=== PATIENT | male | born 1960 | race Caucasian/White ===

== ENCOUNTER 2017-11-06 07:15 | Inpatient (IN) | payer OTHER ==
[~2017-11-06 07:15] MED LIST: SOD CHLORIDE 0.45% 1,000 ML IV
[2017-11-06 08:27] LABS: ADD MAN DIFF? NO
[2017-11-06 08:30] LABS: BASOPHIL # 0.1 10^3/ul (0.0-0.1); BASOPHILS % 0.8 % (0.0-2.0); EOSINOPHILS # 0.3 10^3/ul (0.0-0.5); HEMATOCRIT 45.8 % (42.0-52.0); HEMOGLOBIN 15.2 g/dl (14.0-18.0); LYMPHOCYTES # 2.4 10^3/ul (0.8-2.9); LYMPHOCYTES % 28.1 % (15.0-51.0); MEAN CORPUSCULAR HEMOGLOBIN 27.5 pg (29.0-33.0); MEAN CORPUSCULAR HGB CONC 33.2 g/dl (32.0-37.0); MEAN CORPUSCULAR VOLUME 82.8 fl (82.0-101.0); MEAN PLATELET VOLUME 11.8 fl (7.4-10.4); MONOCYTE # 0.7 10^3/ul (0.3-0.9); MONOCYTES % 8.1 % (0.0-11.0); NEUTROPHILS % 59.4 % (39.0-77.0); PLATELET COUNT 254 10^3/UL (140-415); RED BLOOD COUNT 5.53 10^6/ul (4.70-6.10); RED CELL DISTRIBUTION WIDTH 13.6 % (11.5-14.5)
[2017-11-06 08:30] LABS: WHITE BLOOD COUNT 8.4 10^3/ul (4.8-10.8)
[2017-11-06] MEDS ORDERED: HEPARIN 1000 UNITS/ML 10 ML INJ (08:40)
[2017-11-06] MEDS ORDERED: FENTAnyl 50 MCG/ML VIAL (08:40)
[2017-11-06] MEDS ORDERED: LIDOCAINE 1% (MDV) 20 ML INJ (08:40)
[2017-11-06] MEDS ORDERED: VERAPAMIL 5 MG INJ (08:41)
[2017-11-06] MEDS ORDERED: MIDAZOLAM 1 MG/ML 2 ML INJ (08:41)
[2017-11-06] MEDS ORDERED: NITROGLYCERIN (IC) 100 MCG/ML INJ (08:41)
[2017-11-06 08:49] LABS: ANION GAP 13 (8-16); CARBON DIOXIDE 24 mmol/L (21-31); CHLORIDE 106 mmol/L (97-110); CHOL/HDL RATIO 8.4 RATIO; GLUCOSE 183 mg/dl (70-220); HDL CHOLESTEROL 30 mg/dl (28-71)
[2017-11-06 08:57] LABS: BLOOD UREA NITROGEN 17 mg/dl (7-20); CALCIUM 10.1 mg/dl (8.4-10.2); CREATININE 0.93 mg/dl (0.61-1.24); LDL CHOLESTEROL,CALCULATED 65 mg/dl; POTASSIUM 4.2 mmol/L (3.5-5.1); SODIUM 139 mmol/L (135-144); TRIGLYCERIDES 790 mg/dl (0-149)
[2017-11-06 09:00] LABS: CHOLESTEROL 253 mg/dl (100-200); INR 1.02; PROTIME 13.5 Sec (11.9-14.9); PT RATIO 1.1
[2017-11-06 09:01] LABS: PARTIAL THROMBOPLASTIN TIME 25.3 Sec (25.0-35.0)
[2017-11-06] MEDS ORDERED: IODIXANOL LOCM 100 ML BTL (10:59)
[2017-11-06] MEDS ORDERED: ASPIRIN 325 MG TAB (11:00)
[2017-11-06] MEDS ORDERED: TICAGRELOR 90 MG TABLET (11:00)
[2017-11-06] MEDS ORDERED: ZOLPIDEM 5 MG TAB PO (11:30)
[2017-11-06] MEDS ORDERED: ONDANSETRON 4 MG INJ IV (11:30)
[2017-11-06] MEDS ORDERED: ACETAMINOPHEN 325 MG TAB PO (11:30)
[2017-11-06] MEDS ORDERED: AL HYDROX/MG HYDROX/SIMETH 30 ML CUP PO (11:30)
[2017-11-06] MEDS: SOD CHLORIDE 0.9% 1,000 ML IV ×3 (12:06→21:07)
[2017-11-06] MEDS: OXYCODONE/ACETAMINOPHEN (5/325) TAB PO (12:42)
[2017-11-06] MEDS ORDERED: GLUCOSE GEL 15 GRAM TUBE BUCCAL (17:00)
[2017-11-06] MEDS ORDERED: GLUCAGON 1 MG INJ IM (17:00)
[2017-11-06] MEDS ORDERED: GLUCOSE GEL 15 GRAM TUBE PO ×2 (17:00)
[2017-11-06] MEDS ORDERED: DEXTROSE 50% 50 ML SYRINGE IV ×2 (17:00)
[2017-11-06] MEDS: INSULIN ASPART [NOVOLOG] 3 ML PEN SC ×2 (18:26→21:04)
[2017-11-06] MEDS: INSULIN GLARGINE [LANtus] 3 ML PEN SC (20:13)
[2017-11-06] MEDS: DIPHENHYDRAMINE 50 MG CAP PO (20:16)
[2017-11-06] MEDS: FAMOTIDINE 20 MG TAB PO (20:17)
[2017-11-06] MEDS: DIAZEPAM 5 MG TAB PO (20:17)
[2017-11-06] MEDS ORDERED: NON-FORMULARY/PATIENT OWN MED (Icosapent Ethyl (Vascepa) 1 GM) PO (21:00)
[2017-11-06] MEDS: TICAGRELOR 90 MG TABLET PO (21:03)
[2017-11-07] MEDS: ACCU-CHEK XX (02:00)
[2017-11-07 05:48] LABS: ADD MAN DIFF? NO
[2017-11-07 05:59] LABS: WHITE BLOOD COUNT 10.4 10^3/ul (4.8-10.8)
[2017-11-07 05:59] LABS: BASOPHIL # 0.1 10^3/ul (0.0-0.1); BASOPHILS % 0.5 % (0.0-2.0); EOSINOPHILS # 0.2 10^3/ul (0.0-0.5); EOSINOPHILS % 1.4 % (0.0-7.0); HEMATOCRIT 43.6 % (42.0-52.0); HEMOGLOBIN 14.7 g/dl (14.0-18.0); LYMPHOCYTES # 1.7 10^3/ul (0.8-2.9); LYMPHOCYTES % 16.3 % (15.0-51.0); MEAN CORPUSCULAR HEMOGLOBIN 27.9 pg (29.0-33.0); MEAN CORPUSCULAR HGB CONC 33.7 g/dl (32.0-37.0); MEAN CORPUSCULAR VOLUME 82.9 fl (82.0-101.0); MEAN PLATELET VOLUME 11.8 fl (7.4-10.4); NEUTROPHIL # 7.4 10^3/ul (1.6-7.5); NEUTROPHILS % 71.4 % (39.0-77.0); PLATELET COUNT 217 10^3/UL (140-415); RED BLOOD COUNT 5.26 10^6/ul (4.70-6.10); RED CELL DISTRIBUTION WIDTH 13.4 % (11.5-14.5)
[2017-11-07 06:29] LABS: ANION GAP 14 (8-16); BLOOD UREA NITROGEN 15 mg/dl (7-20); CALCIUM 9.5 mg/dl (8.4-10.2); CARBON DIOXIDE 24 mmol/L (21-31); CHLORIDE 106 mmol/L (97-110); CHOLESTEROL 226 mg/dl (100-200); CREATINE KINASE 294 IU/L (23-200); CREATININE 0.89 mg/dl (0.61-1.24); GLUCOSE 96 mg/dl (70-220); HDL CHOLESTEROL 28 mg/dl (28-71); POTASSIUM 4.1 mmol/L (3.5-5.1); SODIUM 140 mmol/L (135-144)
[2017-11-07 06:30] LABS: CK INDEX 0.7
[2017-11-07 06:40] LABS: CK-MB 2.06 ng/ml (0.0-2.4); LDL CHOLESTEROL,CALCULATED 66 mg/dl; TRIGLYCERIDES 658 mg/dl (0-149)
[2017-11-07 06:49] LABS: TROPONIN-I 0.237 ng/ml (0.000-0.120)
[2017-11-07] MEDS: INSULIN ASPART [NOVOLOG] 3 ML PEN SC ×2 (08:36→11:30)
[2017-11-07] MEDS: METOPROLOL (XL) 25 MG TAB PO (08:55)
[2017-11-07] MEDS: FENOFIBRATE 145 MG TAB PO (08:55)
[2017-11-07] MEDS: HYDROCHLOROTHIAZIDE 25 MG TAB PO (08:55)
[2017-11-07] MEDS: ASPIRIN (EC) 81 MG TAB PO (08:56)
[2017-11-07] MEDS: LOSARTAN 50 MG TAB PO (08:56)
[2017-11-07] MEDS: PENTOXIFYLLINE (SR) 400 MG TAB PO (08:56)
[2017-11-07] MEDS: TICAGRELOR 90 MG TABLET PO (09:01)
[2017-11-07] MEDS ORDERED: BIVALIRUDIN 250MG /NS 50 ML 100 ML IVPB (15:38)
== END 2017-11-07 13:26 | disposition home or self-care (01) | DRG 247 ==
LOC: SDS 07:15 → REC 11:09 → ICU 16:14
PROVIDERS: Internal Medicine
PROC: 027034Z Dilation of Coronary Artery, One Artery with Drug-eluting Intraluminal Device, Percutaneous Approach (ICD-10-PCS; principal; 2017-11-06 08:40)
PROC: 4A023N8 Measurement of Cardiac Sampling and Pressure, Bilateral, Percutaneous Approach (ICD-10-PCS; 2017-11-06 08:40)
PROC: B211YZZ Fluoroscopy of Multiple Coronary Arteries using Other Contrast (ICD-10-PCS; 2017-11-06 08:40)
PROC: B215YZZ Fluoroscopy of Left Heart using Other Contrast (ICD-10-PCS; 2017-11-06 08:40)
DX: I25.10 Atherosclerotic heart disease of native coronary artery without angina pectoris (principal); I25.82 Chronic total occlusion of coronary artery; I10 Essential (primary) hypertension; E11.9 Type 2 diabetes mellitus without complications; I35.0 Nonrheumatic aortic (valve) stenosis; E78.5 Hyperlipidemia, unspecified; F17.210 Nicotine dependence, cigarettes, uncomplicated; Z82.49 Family history of ischemic heart disease and other diseases of the circulatory system
CPT/HCPCS: 71045; 80048; 80061; 82550; 82553; 82962; 84484; 85025; 85610; 85730; 87081; 93005; 93460